=== PATIENT | female | born 1995 | race Caucasian/White ===

== ENCOUNTER → 2019-11-30 | Outpatient (CLI) | payer OTHER ==
--- NOTE | 2019-11-30 10:02 | KCIC ---
LUMBAR SPINE WO CONTRAST Date: 11/30/2019 8:45 AM Indication: Reason: LUMBOSACRAL SPONDYLOSIS WITHOUT MYELOPATHY / Spl. Instructions: / History: Progressing right sided leg pain and weakness in recent months. Comparison: None. Technique: Multi-planar multi-weighted magnetic resonance imaging of the lumbar spine was performed without intravenous contrast using the standard lumbar spine protocol. FINDINGS: The lumbar spine is normally aligned. No acute fracture. Degenerative disc desiccation and disc space height loss at L5-S1. Bone marrow signal intensity is normal. The conus terminates at a normal level. No abnormal signal is seen within the visualized distal spinal cord. No clumping of intrathecal nerve roots. No soft tissue abnormality in the visualized abdomen or pelvis. T12-L1: No disc bulge. No facet arthropathy. No significant spinal stenosis or neural foraminal narrowing. L1-L2: No disc bulge. No facet arthropathy. No significant spinal stenosis or neural foraminal narrowing. L2-L3: No disc bulge. No facet arthropathy. No significant spinal stenosis or neural foraminal narrowing. L3-L4: No disc bulge. No facet arthropathy. No significant spinal stenosis or neural foraminal narrowing. L4-L5: No disc bulge. No facet arthropathy. No significant spinal stenosis or neural foraminal narrowing. L5-S1: Disc bulge with annular tear and central protrusion. No significant spinal canal stenosis. Mild left neural foraminal narrowing. IMPRESSION: Mild degenerative changes at L5-S1. Electronically signed by: Scott George MD (11/30/2019 9:59 AM) [id number]
== END ==
LOC: KCIC MRI 08:36
PROVIDERS: ATTEND Neurological Surgery
DX: M47.817 Spondylosis without myelopathy or radiculopathy, lumbosacral region (principal); M48.07 Spinal stenosis, lumbosacral region
CPT/HCPCS: 72148